=== PATIENT | male | born 1970 | race Caucasian/White ===

== ENCOUNTER 2024-01-23 16:36 | Emergency (ER) | payer BC ==
[~2024-01-23] VITALS: Ht 170.1 cm; Wt 70.8 kg
[~2024-01-23 16:36] MED LIST: ACULAR 0.5%3 ML OPH; ANAPROX DS550 MG PO; PENICILLIN VK500 MG PO; TOBREX OPHTH S2.5 ML OPH; TRAMADOL HCL50 MG PO
[2024-01-23] MEDS ORDERED: AMOX-CLAV 875-1 EACH PO (17:13)
[2024-01-23] MEDS ORDERED: MELOXICAM15 MG PO (17:13)
[2024-01-23] MEDS ORDERED: Acetaminophen/Oxycodone 5 MG/325 MG TABLET PO ONE (17:15)
[2024-01-23] MEDS ORDERED: Amoxicillin/Clavulanate Pota 875 MG TAB PO ONE (17:15)
== END 2024-01-23 17:16 | disposition home or self-care (01) ==
LOC: ED 16:36
DX: K04.7 Periapical abscess without sinus (principal); K02.9 Dental caries, unspecified; F17.200 Nicotine dependence, unspecified, uncomplicated

== ENCOUNTER 2024-09-09 14:52 | Emergency (ER) | payer BC ==
[~2024-09-09] VITALS: Ht 170.1 cm; Wt 65.8 kg
[~2024-09-09 14:52] MED LIST changes: +AMOX-CLAV 875-1 EACH PO; +MELOXICAM15 MG PO
[2024-09-09] MEDS ORDERED: NAPROSYN500 MG PO (16:36)
[2024-09-09] MEDS ORDERED: Acetaminophen/Hydrocodone 5 MG/325 MG TABLET PO ONE (16:40)
== END 2024-09-09 16:42 | disposition home or self-care (01) ==
LOC: ED 14:52
DX: S40.011A Contusion of right shoulder, initial encounter (principal); Z87.891 Personal history of nicotine dependence; W00.1XXA Fall from stairs and steps due to ice and snow, initial encounter; Y93.89 Activity, other specified; Y92.89 Other specified places as the place of occurrence of the external cause; Y99.8 Other external cause status

== ENCOUNTER 2025-03-29 05:32 | Emergency (ER) | payer SELFPAY ==
[~2025-03-29] VITALS: Ht 170.1 cm; Wt 65.8 kg
[~2025-03-29 05:32] MED LIST changes: +NAPROSYN500 MG PO
[2025-03-29] MEDS ORDERED: Tdap Vaccine 0.5 ML SYR (Adult Vaccine) IM ONE (05:50)
[2025-03-29] MEDS ORDERED: DERMABOND 1 EA APPL T ONE (06:12)
[2025-03-29] MEDS ORDERED: SILVER NITRATE APPLICATOR 1 EACH APP T ONE (06:26)
== END 2025-03-29 06:32 | disposition home or self-care (01) ==
LOC: ED 05:32
DX: S51.012A Laceration without foreign body of left elbow, initial encounter (principal); Z79.899 Other long term (current) drug therapy; W26.8XXA Contact with other sharp object(s), not elsewhere classified, initial encounter; Y93.89 Activity, other specified; Y92.89 Other specified places as the place of occurrence of the external cause; Y99.8 Other external cause status